=== PATIENT | female | born 1980 | race Caucasian/White ===

== ENCOUNTER 2016-12-06 13:30 | Emergency (ER) | payer SELFPAY ==
[~2016-12-06] VITALS: Ht 165.1 cm; Wt 59.0 kg
[~2016-12-06 13:30] MED LIST: GABA600T PO; ULTR50TA5 PO; [UNRECOGNIZED DRUG - CODE] PO
[2016-12-06 13:31] VITALS: BP 127/82; PULSE 72; RESP 16; TEMP 98.1; O2SAT 98
--- NOTE | 2016-12-06 13:54 | PD ---
Physical Exam Time Seen by Provider: 13:52 Narrative 36yo F w/ c/o allergic reaction to sun since yesterday. Hx of sun allergy. Denies airway edema, SOB, fever, vomiting. Patient stable. Patient seen in triage. Awaiting bed placement. Data Data Last Documented VS Vital Signs Date Time Temp Pulse Resp B/P Pulse Ox O2 Delivery O2 Flow Rate FiO2 12/06/16 13:31 98.1 72 16 127/82 98 MDM Supervised Visit with GILMER: Antoinette Hancock Dec 06, 2016 13:54
--- NOTE | 2016-12-06 14:55 | PD ---
HPI . Sun allergy Chief Complaint: Allergic/Adverse Reaction Time Seen by Provider: 14:55 Travel History International Travel<30 days: No Contact w/Intl Traveler<30days: No Traveled to known affect area: No History of Present Illness HPI 36-year-old female here with complaints of sun allergy. Patient says that once a year when she is exposed to the sun she breaks out in a rash all over the upper extremities and in her neck. She says that she's had this rash before and her primary care doctor told her to come straight to the emergency department for a shot of steroids. She was seen in the emergency department for this rash prior and was given a shot of dexamethasone, which resolved her issue. She was advised to follow-up with vamp stitcher, which she has not yet done. She tells me that this only occurs once a year and a steroid injection completely resolves her issue. She denies any shortness of breath or angioedema. She has no other complaints. PFSH Past Medical History Anxiety: Yes Diminished Hearing: No ?: Not LMP: 11/17/2016 Tubal Ligation: Yes Past Surgical History Gynecologic Surgery: Yes Social History Alcohol Use: No Tobacco Use: Yes (08/22 PPD) Substance Use: No Allergies-Medications (Allergen,Severity, Reaction): Coded Allergies: No Known Allergies (Unverified , 12/06/16) Reported Meds & Prescriptions Reported Meds & Active Scripts Active Ultram (Tramadol HCl) 50 Mg Tab 50 Mg PO Q4H PRN Acyclovir 400 Mg Tab 400 Mg PO TID 7 Days Reported Gabapentin 600 Mg Tab 600 Mg PO TID Review of Systems General / Constitutional: No: Fever Eyes: No: Visual changes HENT: No: Headaches Cardiovascular: No: Chest Pain or Discomfort Respiratory: No: Shortness of Breath Gastrointestinal: No: Abdominal Pain Genitourinary: No: Dysuria Musculoskeletal: No: Pain Skin: Positive Rash Neurologic: No: Weakness Psychiatric: No: Depression Endocrine: No: Polydipsia Hematologic/Lymphatic: No: Easy Bruising Physical Exam Narrative GENERAL: AAO x 3, no acute distress, Well-nourished, well-developed patient. SKIN: Warm and dry. No visible bruising. There is a papular rash on the anterior chest, b/l arms and partially on the back on the neck. No pustules or vesicles. HEAD: Normocephalic and atraumatic. EYES: No scleral icterus. No injection or drainage. ENT: No nasal drainage noted. Mucous membranes pink. Airway patent. NECK: Supple, trachea midline. No JVD. CARDIOVASCULAR: Regular rate and rhythm without murmurs, gallops, or rubs. RESPIRATORY: Breath sounds equal bilaterally. No accessory muscle use. No rhonchi or rales. GASTROINTESTINAL: normal visual inspection EXTREMITIES: No cyanosis or edema. BACK: Nontender without obvious deformity. No CVA tenderness. PSYCH: AAO x 3, normal affect. Data Data Last Documented VS Vital Signs Date Time Temp Pulse Resp B/P Pulse Ox O2 Delivery O2 Flow Rate FiO2 12/06/16 13:31 98.1 72 16 127/82 98 MDM Medical Decision Making Medical Screen Exam Complete: Yes Emergency Medical Condition: Yes Medical Record Reviewed: Yes Differential Diagnosis Contact dermatitis, less likely cellulitis, less likely shingles Narrative Course 36-year-old female here with complaints of sun allergy. Patient says that once a year when she is exposed to the sun she breaks out in a rash all over the upper extremities and in her neck. She says that she's had this rash before and her primary care doctor told her to come straight to the emergency department for a shot of steroids. She was seen in the emergency department for this rash prior and was given a shot of dexamethasone, which resolved her issue. She was advised to follow-up with vamp stitcher, which she has not yet done. She tells me that this only occurs once a year and a steroid injection completely resolves her issue. She denies any shortness of breath or angioedema. She has no other complaints. Patient seen and examined. She appears to have the same rash that she has had in the past. I'll provide her with a shot of dexamethasone as this seems to resolve her issue. Have explained that she will need to follow vamp stitcher for further investigation of this rash. She can use [id number] hydrocortisone cream. Patient verbalized understanding of instructions, questions were answered, and thanked me for their care. I advised them if their condition worsens, please return to the nearest emergency room for further care. Diagnosis Primary Impression: Contact dermatitis Qualified Code: L25.9 - Contact dermatitis, unspecified contact dermatitis type, unspecified trigger Patient Instructions: General Instructions Additional Instructions: Please follow-up with the vamp stitcher for further investigation of this rash. You can use [id number] Benadryl and hydrocortisone cream as needed. Med/Other Pt SpecificInfo: No Change to Meds Disposition: 01 DISCHARGE HOME Condition: Stable Aimee Fountain Dec 06, 2016 14:55
[2016-12-06] MEDS ORDERED: DEXAMETHASONE SOD PHOS 4 MG/ML VIAL IM ONE (15:00)
[2016-12-06] MEDS ORDERED: BUPR150XL PO (15:13)
== END 2016-12-06 15:19 | disposition home or self-care (01) ==
LOC: NEPK 13:30
DX: L25.9 Unspecified contact dermatitis, unspecified cause (principal)
CPT/HCPCS: 96372; 99283; J1100

== ENCOUNTER 2016-12-12 09:50 | Emergency (ER) | payer SELFPAY ==
[~2016-12-12] VITALS: Ht 165.1 cm; Wt 60.0 kg
[~2016-12-12 09:50] MED LIST changes: +BUPR150XL PO; -ULTR50TA5 PO; -[UNRECOGNIZED DRUG - CODE] PO
[2016-12-12 09:53] VITALS: BP 125/84; PULSE 81; RESP 15; TEMP 97.9; O2SAT 99
[2016-12-12] MEDS ORDERED: PROPARACAINE HCL 0.5% OPHT SOLN 15 ML BTL RIGHT EYE ONE (10:15)
--- NOTE | 2016-12-12 10:28 | PD ---
HPI Chief Complaint: Eye Problems/Injury Time Seen by Provider: 10:28 Travel History International Travel<30 days: No Contact w/Intl Traveler<30days: No Traveled to known affect area: No History of Present Illness HPI 36-year-old female presents to the emergency department with complaint of right eye pain and redness upon waking up this morning. [place] the beach [place] and doesn't know if maybe she got something in her eye. Reports clear watery drainage. Denies change in vision. Denies fever, chills, nausea, vomiting. Has not taken any medications or tried any treatments to alleviate her symptoms. Allergies to latex. No other medical complaints. No other modifying factors or associated signs and symptoms. PFSH Past Medical History Anxiety: Yes Diminished Hearing: No ?: Not Tubal Ligation: Yes Past Surgical History Gynecologic Surgery: Yes Social History Alcohol Use: No Tobacco Use: Yes (08/22 PPD) Substance Use: No Allergies-Medications (Allergen,Severity, Reaction): Coded Allergies: Latex (Verified Allergy, Severe, 12/12/16) Reported Meds & Prescriptions Reported Meds & Active Scripts Active Erythromycin Opth Oint 5 Mg/Gm Oint 1 Applic RIGHT EYE QID 7 Days Ibuprofen 800 Mg Tab 800 Mg PO Q6HR PRN Reported Wellbutrin Xl 24 HR (Bupropion HCl) 150 Mg Tab 150 Mg PO BID Gabapentin 600 Mg Tab 400 Mg PO TID Review of Systems Except as stated in HPI: all other systems reviewed are Neg Physical Exam Narrative GENERAL: Well-nourished, well-developed female patient, in no acute distress; afebrile, nontoxic-appearing SKIN: Warm and dry. HEAD: Atraumatic. Normocephalic. EYES: Pupils equal and round at 3 mm with brisk reaction. PERRLA. EOMI. visual acuity 20/25 bilateral. Right lid eversion with no foreign body noted. Right eye with mild scleral erythema and without lid edema. No orbital tenderness, erythema or cellulitis. Right eye with photophobia. No consensual photophobia. No scleral icterus. Clear drainage. Jorge lamp exam reveals approximately 3 mm corneal abrasion at the 5 o'clock position of the sclera, just outside of the iris. ENT: Mucosa pink and moist. Airway patent. NECK: Trachea midline. CARDIOVASCULAR: Regular rate. RESPIRATORY: No accessory muscle use. GASTROINTESTINAL: Flat. NEUROLOGICAL: Awake and alert. Oriented 3. No obvious cranial nerve deficits. Motor grossly within normal limits. Normal speech. PSYCHIATRIC: Appropriate mood and affect; insight and judgment normal. Data Data Last Documented VS Vital Signs Date Time Temp Pulse Resp B/P Pulse Ox O2 Delivery O2 Flow Rate FiO2 12/12/16 09:53 97.9 81 15 125/84 99 Orders Proparacaine 0.5% Opth Soln (Alcaine 0.5 (12/12/16 10:15) [facility] Medical Decision Making Medical Screen Exam Complete: Yes Emergency Medical Condition: Yes Medical Record Reviewed: Yes Differential Diagnosis Corneal abrasion, foreign body, conjunctivitis Narrative Course 36-year-old female with corneal abrasion to the right eye. Mandatory referral for ophthalmology entered as patient does not have insurance. Erythromycin and ibuprofen prescribed for home. Instructed patient to follow up with ophthalmology tomorrow. Patient verbalizes understanding and agreement with treatment plan. Patient is medically cleared and stable for discharge. Discussed reasons to return to the emergency department. Instructed patient to follow up with primary care provider. Patient agrees with treatment plan. The patients vital signs are stable and the patient is stable for outpatient follow- up and treatment. Patient discharged home, stable and in no acute distress. Diagnosis Primary Impression: Corneal abrasion, right Qualified Code: S05.01XA - Corneal abrasion, right, initial encounter Referrals: Hr Generalist Primary Care Physician Patient Instructions: Corneal Abrasion (ED), General Instructions Departure Forms: Tests/Procedures, Work Release Enter return to work date: December 17, 2016 Additional Instructions: Ibuprofen or Tylenol as directed and as needed to reduce pain Do not patch the eye Do not rub the eye Refrigerated eye drops as needed to reduce pain Cool compresses to the eye as needed to reduce pain Follow-up with ophthalmology in 1 day Primary care provider Return to the emergency department immediately with worsening of symptoms Med/Other Pt SpecificInfo: Prescription(s) given Scripts Erythromycin Opth Oint 5 Mg/Gm Oint1 Applic RIGHT EYE QID 7 Days Ref 0 Prov:Antoinette Jackman 12/12/16 Ibuprofen 800 Mg [id number] Mg PO Q6HR PRN (PAIN) #30 TAB Ref 0 Prov:Antoinette Jackman 12/12/16 Disposition: DISCHARGE HOME Condition: Stable Antoinette Jackman Dec 12, 2016 10:28
[2016-12-12] MEDS ORDERED: IBUP800T23 PO (10:38)
[2016-12-12] MEDS ORDERED: ERYTOIN10 RIGHT EYE (10:38)
== END 2016-12-12 10:55 | disposition home or self-care (01) ==
LOC: NEPK 09:50
DX: S05.02XA Injury of conjunctiva and corneal abrasion without foreign body, left eye, initial encounter (principal); F17.210 Nicotine dependence, cigarettes, uncomplicated; F41.9 Anxiety disorder, unspecified; X58.XXXA Exposure to other specified factors, initial encounter
CPT/HCPCS: 99282

== ENCOUNTER 2016-12-13 19:46 | Emergency (ER) | payer SELFPAY ==
[~2016-12-13] VITALS: Ht 170.2 cm; Wt 66.0 kg
[~2016-12-13 19:46] MED LIST changes: +ERYTOIN10 RIGHT EYE; +IBUP800T23 PO
[2016-12-13 19:48] VITALS: BP 141/88; PULSE 84; RESP 14; TEMP 98.6; O2SAT 99
[2016-12-13] MEDS ORDERED: diphenhydrAMINE HCL 50 MG/ML VIAL IM ONE (21:15)
[2016-12-13] MEDS ORDERED: DEXAMETHASONE SOD PHOS 4 MG/ML VIAL IM ONE (21:15)
--- NOTE | 2016-12-13 21:18 | PD ---
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 She developed a burning rash on her arms and upper chest wall today at 3 PM all walking out of the sun. She gets a similar type of rash about 1-2 times a year and she is had this issue for several years. She has been told in the past that she has a photosensitivity reaction. Multiple times in the past she has received Decadron injections which seems to resolve the rash and she is here requesting the same. She is currently prescribed gabapentin Wellbutrin, she is using ibuprofen [id number]. Besides ibuprofen denies any new medications. Denies any new creams or lotions or detergents. Denies any rash underneath her clothing or on the legs. Denies any angioedema, shortness of breath or wheezing. She has no other complaints. [facility] Past Medical History Anxiety: Yes Diminished Hearing: No Tubal Ligation: Yes Past Surgical History Gynecologic Surgery: Yes Social History Alcohol Use: No Tobacco Use: Yes (08/22 PPD) Substance Use: No Allergies-Medications (Allergen,Severity, Reaction): Coded Allergies: Latex (Verified Allergy, Severe, 12/13/16) Reported Meds & Prescriptions Reported Meds & Active Scripts Active Erythromycin Opth Oint 5 Mg/Gm Oint 1 Applic RIGHT EYE QID 7 Days Ibuprofen 800 Mg Tab 800 Mg PO Q6HR PRN Reported Wellbutrin Xl 24 HR (Bupropion HCl) 150 Mg Tab 150 Mg PO BID Gabapentin 600 Mg Tab 400 Mg PO TID Review of Systems Except as stated in HPI: all other systems reviewed are Neg Physical Exam Narrative GENERAL: This is well-developed well-nourished female in no acute distress SKIN: Warm and dry. Blisterous rash noted on the arms, anterior neck and upper chest wall. No petechiae, no purpura, no hives, no erythema, no peeling skin HEAD: Atraumatic. Normocephalic. EYES: Pupils equal and round. No scleral icterus. No injection or drainage. ENT: No nasal bleeding or discharge. Mucous membranes pink and moist. NECK: Trachea midline. No JVD. CARDIOVASCULAR: Regular rate and rhythm. No murmur appreciated. RESPIRATORY: No accessory muscle use. Clear to auscultation. Breath sounds equal bilaterally. 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 She developed a similar rash on her arms and anterior neck where her skin was uncomfortable walking in the sun today at 3 PM. Her history is consistent with a photosensitivity reaction. She is currently prescribed gabapentin and Wellbutrin and photosensitivity dermatitis is not listed as a major adverse reaction to either medication on uptodate. She has an appointment with a hydrogeology professor in 2 weeks to further investigate this issue. She has been given Decadron, Benadryl injections here. She is stable for discharge. Diagnosis Primary Impression: Photosensitivity Additional Instructions: Follow-up with hydrogeology professor as scheduled. Return for any emergent medical conditions. Med/Other Pt SpecificInfo: No Change to Meds Disposition: 01 DISCHARGE HOME Condition: Stable Mingo Barney Dec 13, 2016 21:18
== END 2016-12-13 22:50 | disposition home or self-care (01) ==
LOC: NEPK 19:46
DX: L56.8 Other specified acute skin changes due to ultraviolet radiation (principal)
CPT/HCPCS: 96372; 99282; J1100; J1200

== ENCOUNTER 2016-12-22 16:56 | Emergency (ER) | payer SELFPAY ==
[~2016-12-22] VITALS: Ht 165.1 cm; Wt 60.0 kg
[2016-12-22 16:58] VITALS: BP 135/93; PULSE 104; RESP 24; TEMP 98.6; O2SAT 99
[2016-12-22] MEDS ORDERED: SODIUM CHLORIDE 0.9% FLUSH 10 ML FLUSH IVF PRN (17:15)
[2016-12-22] MEDS ORDERED: FAMOTIDINE 20 MG/2 ML VIAL IV PUSH ONE (17:15)
[2016-12-22] MEDS ORDERED: SODIUM CHLOR 0.9% 1000 ML INJ 1,000 ML IV ONE (17:15)
[2016-12-22] MEDS ORDERED: KETOROLAC TROMETHAMINE 30 MG/ML (IVP) VIAL IV PUSH ONE (17:15)
[2016-12-22 17:21] VITALS: RESP 36; O2SAT 100
[2016-12-22] MEDS ORDERED: GABA400C5 PO (17:25)
--- NOTE | 2016-12-22 17:26 | PD ---
HPI Chief Complaint: Chest Pain Time Seen by Provider: 17:05 Travel History International Travel<30 days: No Contact w/Intl Traveler<30days: No Traveled to known affect area: No History of Present Illness HPI Patient is a 36 year old female who presents to ER with complaint of chest pain. Patient reports that she began to have chest pain last night while at rest. Reports that the pain is epigastric, reports pain feels sharp and stabbing in nature. Reports that pain is exacerbated by taking a deep breath. Patient reports that she is feeling short of breath with chest pain. Patient reports that the pain is nonradiating in nature. Patient denies diaphoresis with symptoms, denies history of chest pain in the past. Patient reports that symptoms have been persistent all night and worse today. Patient denies any recent travels or trips, denies history of PE or DVT, denies taking any control pills. Patient denies use of drugs or alcohol. Patient denies family history of any cardiac disease including early SD or coronary artery disease PFSH Past Medical History Anxiety: Yes Diminished Hearing: No Tubal Ligation: Yes Past Surgical History Gynecologic Surgery: Yes Social History Alcohol Use: No Tobacco Use: Yes (08/22 PPD) Substance Use: Yes (RECOVERY) Allergies-Medications (Allergen,Severity, Reaction): Coded Allergies: Latex (Verified Allergy, Severe, 12/22/16) Reported Meds & Prescriptions Reported Meds & Active Scripts Active Reported Gabapentin 800 Mg Tab 800 Mg PO HS Bupropion HCl ER 12 HR (Bupropion HCl) 150 Mg Tab 150 Mg PO BID Gabapentin 400 Mg Cap 400 Cap PO BID Review of Systems General / Constitutional: No: Fever Eyes: No: Visual changes HENT: No: Headaches Cardiovascular: Positive: Chest Pain or Discomfort Respiratory: Positive: Shortness of Breath Gastrointestinal: No: Abdominal Pain Genitourinary: No: Dysuria Musculoskeletal: No: Pain Skin: No Rash Neurologic: No: Weakness Psychiatric: No: Depression Endocrine: No: Polydipsia Hematologic/Lymphatic: No: Easy Bruising Physical Exam Narrative GENERAL: mild distress SKIN: Focused skin assessment warm/dry. HEAD: Atraumatic. Normocephalic. EYES: Pupils equal and round. No scleral icterus. No injection or drainage. ENT: No nasal bleeding or discharge. Mucous membranes pink and moist. NECK: Trachea midline. No JVD. CARDIOVASCULAR: Regular rate and rhythm. No murmur appreciated. Patient with reproducible pain on palpation to her epigastrium RESPIRATORY: No accessory muscle use. Clear to auscultation. Breath sounds equal bilaterally. GASTROINTESTINAL: Abdomen soft, non-tender, nondistended. Hepatic and splenic margins not palpable. MUSCULOSKELETAL: No obvious deformities. No clubbing. No cyanosis. No edema. NEUROLOGICAL: Awake and alert. No obvious cranial nerve deficits. Motor grossly within normal limits. Normal speech. PSYCHIATRIC: Patient anxious on exam Data Data Last Documented VS Vital Signs Date Time Temp Pulse Resp B/P Pulse Ox O2 Delivery O2 Flow Rate FiO2 12/22/16 17:21 Room Air 12/22/16 17:21 36 100 12/22/16 16:58 98.6 104 135/93 Orders Electrocardiogram (12/22/16 17:12) Ckmb (Isoenzyme) Profile (12/22/16 17:12) Complete Blood Count With Diff (12/22/16 17:12) Comprehensive Metabolic Panel (12/22/16 17:12) D-Dimer (12/22/16 17:12) Magnesium (Mg) (12/22/16 17:12) Prothrombin Time / Inr (Pt) (12/22/16 17:12) Act Partial Throm Time (Ptt) (12/22/16 17:12) Troponin I (12/22/16 17:12) Lipase (12/22/16 17:12) Chest, Single Ap (12/22/16 17:12) Ecg Monitoring (12/22/16 17:12) Iv Access Insert/Monitor (12/22/16 17:12) Oximetry (12/22/16 17:12) Sodium Chloride 0.9% Flush (Ns Flush) (12/22/16 17:15) Ed Urine Pregnancytest Poc (12/22/16 17:12) Ketorolac Inj (Toradol Inj) (12/22/16 17:15) Sodium Chlor 0.9% 1000 Ml Inj (Ns 1000 M (12/22/16 17:15) Famotidine Inj (Pepcid Inj) (12/22/16 17:15) Drug Screen, Random Urine (12/22/16 17:18) Labs Laboratory Tests Test 12/22/16 17:45 White Blood Count 5.3 TH/MM3 Red Blood Count 4.75 MIL/MM3 Hemoglobin 13.7 GM/DL Hematocrit 39.6 % Mean Corpuscular Volume 83.4 FL Mean Corpuscular Hemoglobin 28.8 PG Mean Corpuscular Hemoglobin 34.5 % Concent Red Cell Distribution Width 13.9 % Platelet Count 189 TH/MM3 Mean Platelet Volume 9.9 FL Neutrophils (%) (Auto) 43.2 % Lymphocytes (%) (Auto) 41.7 % Monocytes (%) (Auto) 12.8 % Eosinophils (%) (Auto) 1.6 % Basophils (%) (Auto) 0.7 % Neutrophils # (Auto) 2.3 TH/MM3 Lymphocytes # (Auto) 2.2 TH/MM3 Monocytes # (Auto) 0.7 TH/MM3 Eosinophils # (Auto) 0.1 TH/MM3 Basophils # (Auto) 0.0 TH/MM3 CBC Comment DIFF FINAL Differential Comment Prothrombin Time 12.3 SEC Prothromb Time International 1.1 RATIO Ratio Activated Partial 29.2 SEC Thromboplast Time D-Dimer Quantitative (PE/DVT) 0.27 MG/L FEU Sodium Level 137 MEQ/L Potassium Level 3.9 MEQ/L Chloride Level 102 MEQ/L Carbon Dioxide Level 26.3 MEQ/L Anion Gap 9 MEQ/L Blood Urea Nitrogen 17 MG/DL Creatinine 1.01 MG/DL Estimat Glomerular Filtration 63 ML/MIN Rate Random Glucose 97 MG/DL Calcium Level 8.9 MG/DL Magnesium Level 2.2 MG/DL Total Bilirubin 0.5 MG/DL Aspartate Amino Transf 37 U/L (AST/SGOT) Alanine Aminotransferase 88 U/L (ALT/SGPT) Alkaline Phosphatase 72 U/L Total Creatine Kinase 71 U/L Troponin I LESS THAN 0.02 NG/ML Total Protein 8.9 GM/DL Albumin 4.0 GM/DL Lipase 145 U/L [facility] Medical Decision Making Medical Screen Exam Complete: Yes Emergency Medical Condition: Yes Interpretation(s) EKG at 1717 shows normal sinus rhythm at 81 bpm, qt/qtc: 381/418, no acute st or t wave changes Vital Signs Date Time Temp Pulse Resp B/P Pulse Ox O2 Delivery O2 Flow Rate FiO2 12/22/16 16:58 98.6 104 24 135/93 99 Room Air Differential Diagnosis ACS, arrhythmia, PE, electrolyte abnormality, GERD Narrative Course Patient is a 36-year-old female who presents to emergency room with complaints of chest pain. Patient reports that chest began last night while at rest, reports pain to her epigastrium, reports pain as a sharp and stabbing sensation to her chest with associated shortness of breath. Patient reports that symptoms have been constant and have been getting progressively worse over the past day Patient was placed on a hospital monitor upon arrival to emergency room. EKG obtained, EKG with no acute ST-T wave changes. Plan to obtain lab work, x-ray of the chest, plan to monitor patient on hospital monitor. 1 set of cardiac enzymes were ordered to evaluate for infectious etiology of chest pain including but not limited to endocarditis and pericarditis, it was not ordered to rule out ACS. IV Toradol ordered for pain. Vital Signs Date Time Temp Pulse Resp B/P Pulse Ox O2 Delivery O2 Flow Rate FiO2 12/22/16 17:21 Room Air 12/22/16 17:21 36 100 Room Air 12/22/16 16:58 98.6 104 24 135/93 99 Room Air Laboratory Tests Test 12/22/16 17:45 White Blood Count 5.3 TH/MM3 (4.0-11.0) Red Blood Count 4.75 MIL/MM3 (4.00-5.30) Hemoglobin 13.7 GM/DL (11.6-15.3) Hematocrit 39.6 % (35.0-46.0) Mean Corpuscular Volume 83.4 FL (80.0-100.0) Mean Corpuscular Hemoglobin 28.8 PG (27.0-34.0) Mean Corpuscular Hemoglobin 34.5 % Concent (32.0-36.0) Red Cell Distribution Width 13.9 % (11.6-17.2) Platelet Count 189 TH/MM3 (150-450) Mean Platelet Volume 9.9 FL (7.0-11.0) Neutrophils (%) (Auto) 43.2 % (16.0-70.0) Lymphocytes (%) (Auto) 41.7 % (9.0-44.0) Monocytes (%) (Auto) 12.8 % (0.0-8.0) Eosinophils (%) (Auto) 1.6 % (0.0-4.0) Basophils (%) (Auto) 0.7 % (0.0-2.0) Neutrophils # (Auto) 2.3 TH/MM3 (1.8-7.7) Lymphocytes # (Auto) 2.2 TH/MM3 (1.0-4.8) Monocytes # (Auto) 0.7 TH/MM3 (0-0.9) Eosinophils # (Auto) 0.1 TH/MM3 (0-0.4) Basophils # (Auto) 0.0 TH/MM3 (0-0.2) CBC Comment DIFF FINAL Differential Comment Prothrombin Time 12.3 SEC (9.8-11.6) Prothromb Time International 1.1 RATIO Ratio Activated Partial 29.2 SEC Thromboplast Time (24.3-30.1) D-Dimer Quantitative (PE/DVT) 0.27 MG/L FEU (0.00-0.50) Sodium Level 137 MEQ/L (136-145) Potassium Level 3.9 MEQ/L (3.5-5.1) Chloride Level 102 MEQ/L (98-107) Carbon Dioxide Level 26.3 MEQ/L (21.0-32.0) Anion Gap 9 MEQ/L (5-15) Blood Urea Nitrogen 17 MG/DL (7-18) Creatinine 1.01 MG/DL (0.50-1.00) Estimat Glomerular Filtration 63 ML/MIN (>89) Rate Random Glucose 97 MG/DL (74-106) Calcium Level 8.9 MG/DL (8.5-10.1) Magnesium Level 2.2 MG/DL (1.5-2.5) Total Bilirubin 0.5 MG/DL (0.2-1.0) Aspartate Amino Transf 37 U/L (15-37) (AST/SGOT) Alanine Aminotransferase 88 U/L (10-53) (ALT/SGPT) Alkaline Phosphatase 72 U/L (45-117) Total Creatine Kinase 71 U/L (26-192) Troponin I LESS THAN 0.02 NG/ML (0.02-0.05) Total Protein 8.9 GM/DL (6.4-8.2) Albumin 4.0 GM/DL (3.4-5.0) Lipase 145 U/L (73-393) Last Impressions Chest X-Ray 12/22/16 4712 Signed Impressions: Service Date/Time: Thursday, December 22, 2016 17:29 - CONCLUSION: Minimal basilar atelectasis. No consolidation or effusion. Stuart Mckenzie MD Patient feeling better at this time. Patient with complete resolution of symptoms. Signs and symptoms of when to return to the emergency room was reviewed patient in detail. Diagnosis Primary Impression: Chest pain Qualified Code: R07.1 - Chest pain on breathing Patient Instructions: General Instructions Additional Instructions: Please return to ER as needed Please follow up with your primary care doctor in 2-3 days Return to ER if symptoms return Disposition: 01 DISCHARGE HOME Condition: Stable Sumaya Ford DO December 22, 2016 17:26
[2016-12-22] MEDS ORDERED: GABA800T PO (17:28)
[2016-12-22] MEDS ORDERED: BUPR150T5 PO (17:28)
[2016-12-22 18:10] LABS: AUTOMATED NEUTROPHIL # 2.3 TH/MM3 (1.8-7.7); BASOPHIL % 0.7 % (0.0-2.0); EOSINOPHIL # 0.1 TH/MM3 (0-0.4); EOSINOPHIL % 1.6 % (0.0-4.0); HEMATOCRIT 39.6 % (35.0-46.0); HEMO FLAGS DIFF FINAL; LYMPH % 41.7 % (9.0-44.0); LYMPHOCYTE # 2.2 TH/MM3 (1.0-4.8); MEAN CELL VOLUME 83.4 FL (80.0-100.0); MEAN CORPUSCULAR HEMOGLOBIN 28.8 PG (27.0-34.0); MEAN CORPUSCULAR HGB CONC 34.5 % (32.0-36.0); MONO % 12.8 % (0.0-8.0); NEUT % 43.2 % (16.0-70.0); PLATELET COUNT 189 TH/MM3 (150-450); RED BLOOD COUNT 4.75 MIL/MM3 (4.00-5.30); RED CELL DISTRIBUTION WIDTH 13.9 % (11.6-17.2); WHITE BLOOD COUNT 5.3 TH/MM3 (4.0-11.0)
[2016-12-22 18:21] LABS: APTT (PATIENT) 29.2 SEC (24.3-30.1); INTERNATIONAL NORMALIZED RATIO 1.1 RATIO; PROTHROMBIN TIME - PATIENT 12.3 SEC (9.8-11.6)
--- NOTE | 2016-12-22 18:28 | RADRPT ---
EXAM DATE/TIME: 12/22/2016 17:29 [place] COMPARISON: No previous studies available for comparison. INDICATIONS : Chest pain MEDICAL HISTORY : None. SURGICAL HISTORY : None. ENCOUNTER: Initial ACUITY: 2 days PAIN SCORE: 8/10 LOCATION: Bilateral chest FINDINGS: A single view of the chest demonstrates the lungs to be symmetrically aerated without evidence of mas s, infiltrate or effusion. The cardiomediastinal contours are unremarkable. Osseous structures are intact. CONCLUSION: Minimal basilar atelectasis. No consolidation or effusion. Stuart Mckenzie MD on December 22, 2016 at 18:25 Board Certified Radiologist. This report was verified electronically.
[2016-12-22 18:46] LABS: ALKALINE PHOSPHATASE 72 U/L (45-117); ALT (GPT) 88 U/L (10-53); ANION GAP 9 MEQ/L (5-15); AST (GOT) 37 U/L (15-37); BICARBONATE 26.3 MEQ/L (21.0-32.0); BLOOD UREA NITROGEN 17 MG/DL (7-18); CHLORIDE 102 MEQ/L (98-107); CREATINE KINASE 71 U/L (26-192); GLOMERULAR FILTRATION RATE 63 ML/MIN (>89); MAGNESIUM 2.2 MG/DL (1.5-2.5); POTASSIUM 3.9 MEQ/L (3.5-5.1); SODIUM (NA) 137 MEQ/L (136-145); TOTAL BILIRUBIN ADULT 0.5 MG/DL (0.2-1.0)
[2016-12-22 19:16] VITALS: BP 113/83; PULSE 73; RESP 18; O2SAT 100
--- NOTE | 2016-12-22 21:38 | EKG ---
Date Performed: 12/22/2016 Time Performed: 17:17:04 PTAGE: 36 years EKG: Sinus rhythm MARKED LEFT AXIS DEVIATION POSSIBLE RIGHT VENTRICULAR CONDUCTION DELAY ABNORMAL ECG NO PREVIOUS TRACING DOCTOR: Batsheva Alonso Interpretating Date/Time 12/22/2016 21:37:30
== END 2016-12-22 19:20 | disposition home or self-care (01) ==
LOC: NEPE 16:56
DX: R07.1 Chest pain on breathing (principal); R94.31 Abnormal electrocardiogram [ECG] [EKG]
CPT/HCPCS: 71010; 80053; 82550; 83690; 83735; 84484; 84703; 85025; 85379; 85610; 85730; 93005; 96374; 96375; 99285; J1885; J7030

== ENCOUNTER 2017-02-18 19:25 | Emergency (ER) | payer SELFPAY ==
[~2017-02-18] VITALS: Ht 165.1 cm; Wt 61.0 kg
[~2017-02-18 19:25] MED LIST changes: +BUPR150T5 PO; -BUPR150XL PO; -ERYTOIN10 RIGHT EYE; +GABA400C5 PO; -GABA600T PO; +GABA800T PO; -IBUP800T23 PO
[2017-02-18 19:27] VITALS: BP 142/84; PULSE 109; RESP 16; TEMP 98.6; O2SAT 98
[2017-02-18] MEDS ORDERED: AMOX500C PO (19:59)
--- NOTE | 2017-02-18 20:02 | PD ---
HPI Chief Complaint: Oral / Dental Pain or Problem Time Seen by Provider: 19:59 Travel History International Travel<30 days: No Contact w/Intl Traveler<30days: No Traveled to known affect area: No History of Present Illness HPI 36-year-old white female presents to emergency Department with complaints of a lump to her left lower gingiva. She states that this is been present now for the past week. She denied any dental pain prior. She is not having any dental pain now. She has a mildly tender lump to the gingiva. No fever chills. No drainage. No history trauma. No prior problems. PFSH Past Medical History Anxiety: Yes Depression: Yes Diminished Hearing: No Tetanus Vaccination: < 5 Years ?: Not LMP: 02/11/2017 : 3 Para: 3 Tubal Ligation: Yes Past Surgical History Gynecologic Surgery: Yes Social History Alcohol Use: No Tobacco Use: Yes (VAPE) Substance Use: Yes (RECOVERY) Allergies-Medications (Allergen,Severity, Reaction): Coded Allergies: Latex (Verified Allergy, Severe, 02/18/17) Reported Meds & Prescriptions Reported Meds & Active Scripts Active Reported Bupropion HCl ER 12 HR (Bupropion HCl) 150 Mg Tab 150 Mg PO BID Review of Systems Except as stated in HPI: all other systems reviewed are Neg Physical Exam Narrative GENERAL: Well-developed, well-nourished in no acute distress. Nontoxic appearing. HEAD: Normocephalic, atraumatic. EYES: Pupils equal round and reactive. Extraocular motions intact. No scleral icterus. No injection or drainage. ENT: TMs clear without erythema. The external auditory canals clear. Nose: clear . Posterior pharynx is pink and moist. No tonsillar edema or exudate. Uvula midline. Airway patent. The patient has a 1 x 1 cm nodular lesion of the gingiva to the base of her first premolar on the left side. There is no fluctuance or pointing. The tooth does not have any obvious cavity. NECK: Trachea midline.Supple, nontender, moves head freely. No central bony tenderness or spasm. CARDIOVASCULAR: Regular rate and rhythm without murmurs, gallops, or rubs. RESPIRATORY: Clear to auscultation. Breath sounds equal bilaterally. No wheezes , rales, or rhonchi. GASTROINTESTINAL: Abdomen soft, non-tender, nondistended. No hepato-splenomegaly , or palpable masses. No guarding. EXTREMITIES: No clubbing, cyanosis, or edema. No joint tenderness, effusion, or edema noted. BACK: Nontender without deformity or crepitance. No flank tenderness. Data Data Last Documented VS Vital Signs Date Time Temp Pulse Resp B/P Pulse Ox O2 Delivery O2 Flow Rate FiO2 02/18/17 19:27 98.6 109 16 142/84 98 MDM Medical Decision Making Medical Screen Exam Complete: Yes Emergency Medical Condition: Yes Medical Record Reviewed: Yes Differential Diagnosis MDM: Moderate Differential diagnoses: Dental abscess, dental caries, osteitis, cellulitis, pyogenic granuloma, mucocele Narrative Course The patient will be treated for possible dental abscess but I suspect this is a pyogenic granuloma. Diagnosis Primary Impression: Pyogenic granuloma of oral mucosa Patient Instructions: General Instructions Additional Instructions: Rest. Saltwater gargles. Advil for any pain. Amoxicillin. follow-up with a dentist as soon as possible. And return to the ER if any problems. Med/Other Pt SpecificInfo: Prescription(s) given Scripts Amoxicillin 500 Mg [id number] Mg PO TID #30 CAP Prov:Evangelina Rojas MD 02/18/17 Disposition: 01 DISCHARGE HOME Condition: Stable Stuart Liu Feb 18, 2017 20:02
== END 2017-02-18 20:22 | disposition home or self-care (01) ==
LOC: NEPK 19:25
DX: K13.4 Granuloma and granuloma-like lesions of oral mucosa (principal)
CPT/HCPCS: 99283

== ENCOUNTER 2017-04-01 23:50 | Emergency (ER) | payer OTHER ==
[~2017-04-01] VITALS: Ht 165.1 cm; Wt 60.0 kg
[~2017-04-01 23:50] MED LIST changes: +AMOX500C PO; -GABA400C5 PO; -GABA800T PO
--- NOTE | 2017-04-02 00:22 | PD ---
HPI Chief Complaint: Harris act Time Seen by Provider: 00:17 Travel History International Travel<30 days: No Contact w/Intl Traveler<30days: No Traveled to known affect area: No History of Present Illness HPI 36-year-old white female presents to emergency department under Harris act by PD. The patient performed suicide gesture cutting to her right wrist. She states that she is a IV substance abuser. She states that she is addicted to crack cocaine. She has been using IV crack for some time. She claims that she has not used now in the past 3 days. She had just gone through detox. She had broken up with her fianc a couple weeks ago because of her inability to get sobriety. He is living at [facility] [place]. He has been sober now for the past 2 months. She was notified today by her ex-fianc had come by that he was having sexual relationships with another female. The patient performed suicide gesture cutting her right wrist. She is up-to-date with immunizations. She denies any toxic ingestions. She denies any medical complaints. [facility] Past Medical History Narrative Medical Anxiety, depression, IVDA (crack cocaine) Anxiety: Yes Depression: Yes Diminished Hearing: No Tetanus Vaccination: < 5 Years ?: Not : 3 Para: 3 Tubal Ligation: Yes Past Surgical History Narrative Surgical Tubal ligation Gynecologic Surgery: Yes Social History Alcohol Use: No (sober for 2 years) Tobacco Use: Yes (VAPE) Substance Use: Yes (IV crack cocaine. States sober for 3 days.) Allergies-Medications (Allergen,Severity, Reaction): Coded Allergies: Latex (Verified Allergy, Severe, 04/02/17) Reported Meds & Prescriptions Reported Meds & Active Scripts Active Reported Gabapentin 600 Mg Tab 1,200 Mg PO HS Gabapentin 600 Mg Tab 600 Mg PO BID Bupropion HCl ER 12 HR (Bupropion HCl) 150 Mg Tab 150 Mg PO BID Review of Systems Except as stated in HPI: all other systems reviewed are Neg Physical Exam Narrative GENERAL: Well-nourished, well-developed patient. SKIN: Warm and dry. Patient has superficial suicide gesture cutting to the right wrist. She also has bruising and track landry to her forearms. No signs of infection. HEAD: Normocephalic and atraumatic. EYES: No scleral icterus. No injection or drainage. ENT: No nasal drainage noted. Mucous membranes pink. Airway patent. NECK: Supple, trachea midline. Moves head freely without obvious discomfort. CARDIOVASCULAR: Regular rate and rhythm without murmurs, gallops, or rubs. RESPIRATORY: Breath sounds equal bilaterally. No accessory muscle use. GASTROINTESTINAL: Abdomen soft, non-tender, nondistended. EXTREMITIES: No cyanosis or edema. BACK: Nontender without obvious deformity. No CVA tenderness. NEURO: Patient is alert and oriented. no sensorimotor deficits. Nonfocal. Normal speech. PSYCH: No delusions. No auditory or visual hallucinations. Data Data Last Documented VS Vital Signs Date Time Temp Pulse Resp B/P Pulse Ox O2 Delivery O2 Flow Rate FiO2 04/02/17 00:55 98.0 73 16 101/65 99 Room Air Orders Complete Blood Count With Diff (04/02/17 00:05) Comprehensive Metabolic Panel (04/02/17 00:05) Ed Urine Pregnancytest Poc (04/02/17 00:05) Psych Screen (04/02/17 00:05) Drug Screen, Random Urine (04/02/17 00:05) Alcohol (Ethanol) (04/02/17 00:05) Salicylates (Aspirin) (04/02/17 00:05) Tylenol (Acetaminophen) (04/02/17 00:05) Labs Laboratory Tests Test 04/02/17 01:00 White Blood Count 6.9 TH/MM3 Red Blood Count 4.63 MIL/MM3 Hemoglobin 13.5 GM/DL Hematocrit 39.5 % Mean Corpuscular Volume 85.3 FL Mean Corpuscular Hemoglobin 29.1 PG Mean Corpuscular Hemoglobin 34.1 % Concent Red Cell Distribution Width 13.9 % Platelet Count 174 TH/MM3 Mean Platelet Volume 9.2 FL Neutrophils (%) (Auto) 60.7 % Lymphocytes (%) (Auto) 28.5 % Monocytes (%) (Auto) 9.5 % Eosinophils (%) (Auto) 0.9 % Basophils (%) (Auto) 0.4 % Neutrophils # (Auto) 4.2 TH/MM3 Lymphocytes # (Auto) 2.0 TH/MM3 Monocytes # (Auto) 0.7 TH/MM3 Eosinophils # (Auto) 0.1 TH/MM3 Basophils # (Auto) 0.0 TH/MM3 CBC Comment DIFF FINAL Differential Comment Sodium Level 137 MEQ/L Potassium Level 3.7 MEQ/L Chloride Level 105 MEQ/L Carbon Dioxide Level 25.6 MEQ/L Anion Gap 6 MEQ/L Blood Urea Nitrogen 17 MG/DL Creatinine 0.73 MG/DL Estimat Glomerular Filtration 91 ML/MIN Rate Random Glucose 80 MG/DL Calcium Level 9.0 MG/DL Total Bilirubin 0.5 MG/DL Aspartate Amino Transf 62 U/L (AST/SGOT) Alanine Aminotransferase 149 U/L (ALT/SGPT) Alkaline Phosphatase 66 U/L Total Protein 8.6 GM/DL Albumin 4.0 GM/DL Salicylates Level LESS THAN 1.7 MG/DL Urine Opiates Screen NEG Acetaminophen Level LESS THAN 2.0 MCG/ML Urine Barbiturates Screen NEG Urine Amphetamines Screen NEG Urine Benzodiazepines Screen POS Urine Cocaine Screen POS Urine Cannabinoids Screen NEG Ethyl Alcohol Level LESS THAN 3 MG/DL MDM Medical Decision Making Medical Screen Exam Complete: Yes Emergency Medical Condition: Yes Medical Record Reviewed: Yes Interpretation(s) Laboratory Tests Test 04/02/17 01:00 White Blood Count 6.9 TH/MM3 Red Blood Count 4.63 MIL/MM3 Hemoglobin 13.5 GM/DL Hematocrit 39.5 % Mean Corpuscular Volume 85.3 FL Mean Corpuscular Hemoglobin 29.1 PG Mean Corpuscular Hemoglobin 34.1 % Concent Red Cell Distribution Width 13.9 % Platelet Count 174 TH/MM3 Mean Platelet Volume 9.2 FL Neutrophils (%) (Auto) 60.7 % Lymphocytes (%) (Auto) 28.5 % Monocytes (%) (Auto) 9.5 % Eosinophils (%) (Auto) 0.9 % Basophils (%) (Auto) 0.4 % Neutrophils # (Auto) 4.2 TH/MM3 Lymphocytes # (Auto) 2.0 TH/MM3 Monocytes # (Auto) 0.7 TH/MM3 Eosinophils # (Auto) 0.1 TH/MM3 Basophils # (Auto) 0.0 TH/MM3 CBC Comment DIFF FINAL Differential Comment Sodium Level 137 MEQ/L Potassium Level 3.7 MEQ/L Chloride Level 105 MEQ/L Carbon Dioxide Level 25.6 MEQ/L Anion Gap 6 MEQ/L Blood Urea Nitrogen 17 MG/DL Creatinine 0.73 MG/DL Estimat Glomerular Filtration 91 ML/MIN Rate Random Glucose 80 MG/DL Calcium Level 9.0 MG/DL Total Bilirubin 0.5 MG/DL Aspartate Amino Transf 62 U/L (AST/SGOT) Alanine Aminotransferase 149 U/L (ALT/SGPT) Alkaline Phosphatase 66 U/L Total Protein 8.6 GM/DL Albumin 4.0 GM/DL Salicylates Level LESS THAN 1.7 MG/DL Urine Opiates Screen NEG Acetaminophen Level LESS THAN 2.0 MCG/ML Urine Barbiturates Screen NEG Urine Amphetamines Screen NEG Urine Benzodiazepines Screen POS Urine Cocaine Screen POS Urine Cannabinoids Screen NEG Ethyl Alcohol Level LESS THAN 3 MG/DL Differential Diagnosis MDM: High Differential diagnoses: Schizophrenia, schizoaffective disorder, bipolar, anxiety, depression, adjustment reaction, mood disorder NOS, ODD, depressive disorder NOS, dementia, dementia with agitation, psychosis NOS, substance induced mood disorder, intermittent explosive disorder, Asperger syndrome, infection,electrolyte abnormality, malingering. Narrative Course Mental health screening discussed with the patient. Psychiatric screen ordered. The patient has been medically cleared. This is medical clearance for psychiatric admission, substance induced mood disorder Diagnosis Primary Impression: Medical clearance for psychiatric admission Additional Impression: Substance induced mood disorder Condition: Stable Stuart Liu Apr 02, 2017 00:22
[2017-04-02 00:55] VITALS: BP 101/65; PULSE 73; RESP 16; TEMP 98; O2SAT 99
[2017-04-02] MEDS ORDERED: GABA600T PO ×2 (01:00)
[2017-04-02 01:40] LABS: AUTOMATED NEUTROPHIL # 4.2 TH/MM3 (1.8-7.7); BASOPHIL % 0.4 % (0.0-2.0); EOSINOPHIL # 0.1 TH/MM3 (0-0.4); EOSINOPHIL % 0.9 % (0.0-4.0); HEMATOCRIT 39.5 % (35.0-46.0); HEMO FLAGS DIFF FINAL; LYMPH % 28.5 % (9.0-44.0); MEAN CELL VOLUME 85.3 FL (80.0-100.0); MEAN CORPUSCULAR HEMOGLOBIN 29.1 PG (27.0-34.0); MEAN CORPUSCULAR HGB CONC 34.1 % (32.0-36.0); MONO % 9.5 % (0.0-8.0); NEUT % 60.7 % (16.0-70.0); PLATELET COUNT 174 TH/MM3 (150-450); RED BLOOD COUNT 4.63 MIL/MM3 (4.00-5.30); RED CELL DISTRIBUTION WIDTH 13.9 % (11.6-17.2); WHITE BLOOD COUNT 6.9 TH/MM3 (4.0-11.0)
[2017-04-02 01:56] LABS: ALT (GPT) 149 U/L (10-53); ANION GAP 6 MEQ/L (5-15); AST (GOT) 62 U/L (15-37); BICARBONATE 25.6 MEQ/L (21.0-32.0); BLOOD UREA NITROGEN 17 MG/DL (7-18); CHLORIDE 105 MEQ/L (98-107); GLOMERULAR FILTRATION RATE 91 ML/MIN (>89); POTASSIUM 3.7 MEQ/L (3.5-5.1); SODIUM (NA) 137 MEQ/L (136-145)
[2017-04-02 01:58] LABS: ALKALINE PHOSPHATASE 66 U/L (45-117); TOTAL BILIRUBIN ADULT 0.5 MG/DL (0.2-1.0)
[2017-04-02 02:10] LABS: ACETAMINOPHEN LESS THAN 2.0 MCG/ML (10.0-30.0); ALCOHOL LESS THAN 3 MG/DL (0-5)
[2017-04-02 06:29] VITALS: BP 90/55; PULSE 67; RESP 17; O2SAT 99
[2017-04-02 10:23] VITALS: BP 104/67; PULSE 74; RESP 18; O2SAT 99
[2017-04-02 10:56] VITALS: BP 104/67; PULSE 74; RESP 18; O2SAT 99
--- NOTE | 2017-04-02 11:14 | PD ---
History of Present Illness Chief Complaint: Psychiatric Symptoms Time Seen by Provider: 11:00 Travel History International Travel<30 Days: No Contact w/Intl Traveler<30days: No Known affected area: No Legal Status Legal Status: Harris Act Harris Act Signed By: Lazaro Poole History of Present Illness: 36-year-old female brought in under a Harris act for suicidal ideation and behavior. Patient has a history of substance abuse and was recently treated at [facility]. After this treatment, apparently her fianc broke up with her , indicating he had found another woman. At this time, the patient is calm, pleasant and cooperative. She adamantly denies any suicidal or homicidal ideation, plan or intent. She states her ex-fianc is "not worth it". She has a job and a place where she lives. She demonstrates no psychotic symptoms and her cognition is intact. She is verbally damaris for safety and she is competent to do so. She plans to continue treatment for her recovery. PFSH Past Medical History Medical History: Denies Significant Hx Anxiety: Yes Depression: Yes Diminished Hearing: No Psychiatric: Yes (BORDERLINE PERSONALITY DISORDER) Immunizations Current: Yes Tetanus Vaccination: < 5 Years Influenza Vaccination: No ?: Not : 3 Para: 3 Tubal Ligation: Yes Past Surgical History Surgical History: No Previous Surgery Gynecologic Surgery: Yes Psychiatric History Psychiatric History Hx Psychiatric Treatment: DENIES History of Inpatient Treatment: No Guns or firearms in home: No Social History Hx Alcohol Use: No Hx Tobacco Use: Yes Hx Substance Use: Yes Substance Use Type: Alcohol Hx of Substance Use Treatment: Yes Allergies-Medications (Allergen,Severity, Reaction): Coded Allergies: Latex (Verified Allergy, Severe, 04/02/17) Reported Meds & Prescriptions Reported Meds & Active Scripts Active Reported Gabapentin 600 Mg Tab 1,200 Mg PO HS Gabapentin 600 Mg Tab 600 Mg PO BID Bupropion HCl ER 12 HR (Bupropion HCl) 150 Mg Tab 150 Mg PO BID Review of Systems Except as stated in HPI: all other systems reviewed are Neg Exam Alert: Yes [place]: Person, Place, Date, Situation Mood: Calm Affect: Appropriate Speech: Clear Eye Contact: Normal Memory Intact: Immediate, Recent, Remote Insight/Judgement Adequate MDM Medical Decision Making Medical Record Reviewed: Yes Assessment/Plan Patient's medical record was reviewed in this case was discussed with the patient's nurse. As she is calm, pleasant and cooperative, verbally damaris for safety and denying any suicidal or homicidal ideation, plan or intent, this physician feels she does not continue to qualify for a Harris act. She also does not qualify for inpatient psychiatric hospitalization and she is willing to continue treatment for her substance abuse on an outpatient basis. This physician feels it would only antagonized the patient further and do her just service to admit her against her will. Therefore she is being discharged home with red recommendations for follow up at [facility]. Orders Complete Blood Count With Diff (04/02/17 00:05) Comprehensive Metabolic Panel (04/02/17 00:05) Ed Urine Pregnancytest Poc (04/02/17 00:05) Psych Screen (04/02/17 00:05) Drug Screen, Random Urine (04/02/17 00:05) Alcohol (Ethanol) (04/02/17 00:05) Salicylates (Aspirin) (04/02/17 00:05) Tylenol (Acetaminophen) (04/02/17 00:05) Diet Regular Basic (04/02/17 Breakfast) Diet Regular Basic (04/02/17 Lunch) Results Vital Signs Date Time Temp Pulse Resp B/P Pulse Ox O2 Delivery O2 Flow Rate FiO2 04/02/17 10:56 74 18 104/67 99 Room Air 04/02/17 10:23 74 18 104/67 99 Room Air 04/02/17 06:29 67 17 90/55 99 04/02/17 00:55 98.0 73 16 101/65 99 Room Air Laboratory Tests Test 04/02/17 01:00 White Blood Count 6.9 Red Blood Count 4.63 Hemoglobin 13.5 Hematocrit 39.5 Mean Corpuscular Volume 85.3 Mean Corpuscular Hemoglobin 29.1 Mean Corpuscular Hemoglobin 34.1 Concent Red Cell Distribution Width 13.9 Platelet Count 174 Mean Platelet Volume 9.2 Neutrophils (%) (Auto) 60.7 Lymphocytes (%) (Auto) 28.5 Monocytes (%) (Auto) 9.5 Eosinophils (%) (Auto) 0.9 Basophils (%) (Auto) 0.4 Neutrophils # (Auto) 4.2 Lymphocytes # (Auto) 2.0 Monocytes # (Auto) 0.7 Eosinophils # (Auto) 0.1 Basophils # (Auto) 0.0 CBC Comment DIFF FINAL Differential Comment Sodium Level 137 Potassium Level 3.7 Chloride Level 105 Carbon Dioxide Level 25.6 Anion Gap 6 Blood Urea Nitrogen 17 Creatinine 0.73 Estimat Glomerular Filtration 91 Rate Random Glucose 80 Calcium Level 9.0 Total Bilirubin 0.5 Aspartate Amino Transf 62 (AST/SGOT) Alanine Aminotransferase 149 (ALT/SGPT) Alkaline Phosphatase 66 Total Protein 8.6 Albumin 4.0 Salicylates Level LESS THAN 1.7 Urine Opiates Screen NEG Acetaminophen Level LESS THAN 2.0 Urine Barbiturates Screen NEG Urine Amphetamines Screen NEG Urine Benzodiazepines Screen POS Urine Cocaine Screen POS Urine Cannabinoids Screen NEG Ethyl Alcohol Level LESS THAN 3 Diagnosis Primary Impression: Adjustment disorder with mixed emotional features Additional Impression: Cocaine abuse Referrals: [facility] (Out patient) as needed [facility] as needed Mental Health and Substance Abuse Departure Forms: Tests/Procedures Patient Instructions: General Instructions, Cocaine Abuse (ED), Mood Disorders (ED), Medical Clearance for Psychiatric Care (ED) Additional Instructions: DX: Cocaine Abuse, Adjustment Disorder with Mixed Features, Cocaine Abuse Please return to ED if symptems worsen. Disposition: 01 DISCHARGE HOME Condition: Stable Problem Qualifiers Marco Meyer MD Apr 02, 2017 11:14
== END 2017-04-02 11:40 | disposition home or self-care (01) ==
LOC: NEPD 23:50 → NEPJ 04-02 11:40
DX: F43.23 Adjustment disorder with mixed anxiety and depressed mood (principal); F14.20 Cocaine dependence, uncomplicated; F60.3 Borderline personality disorder; S61.511A Laceration without foreign body of right wrist, initial encounter; X78.9XXA Intentional self-harm by unspecified sharp object, initial encounter; Z79.899 Other long term (current) drug therapy
CPT/HCPCS: 80053; 80307; 84703; 85025; 99284